=== PATIENT | male | born 1995 | race Caucasian/White ===

== ENCOUNTER 2024-02-06 19:46 | Emergency (ER) | payer OTHER ==
[2024-02-06 20:05] VITALS: BP 127/90; PULSE 101; RESP 18; TEMP 98.1; BMI 32.1
== END 2024-02-06 21:02 | disposition home or self-care (01) ==
LOC: FER 19:46
DX: S93.601A Unspecified sprain of right foot, initial encounter (principal); M79.671 Pain in right foot; W22.8XXA Striking against or struck by other objects, initial encounter
CPT/HCPCS: 73630-TC-RT-FY; 99283-25